=== PATIENT | female | born 1955 ===

== ENCOUNTER 2023-12-05 07:09 | Day surgery (SDC) | payer OTHER ==
[~2023-12-05 07:09] MED LIST: LOSARTAN-HCTZ1 EACH PO
[2023-12-05] MEDS ORDERED: HEMOSTATIC MATRIX 1 KIT KIT TOP ONE ×2 (11:19→12:15)
[2023-12-05] MEDS ORDERED: ERTAPENEM SODIUM 1,000 MG VIAL ONE (11:20)
[2023-12-05] MEDS ORDERED: DIBUCAINE 30 GM TUBE ONE (11:27)
[2023-12-05] MEDS ORDERED: DIBUCAINE 15 GM OINT..GM. TUBE RECTAL ONE (12:15)
[2023-12-05] MEDS ORDERED: ERTAPENEM SODIUM 1,000 MG VIAL IV ONE (12:15)
== END 2023-12-05 17:35 | disposition home or self-care (01) ==
LOC: CIR.AMB 07:09
PROVIDERS: ATTEND Colon & Rectal Surgery
DX: K62.89 Other specified diseases of anus and rectum (principal); D12.9 Benign neoplasm of anus and anal canal; Z88.6 Allergy status to analgesic agent; Z88.1 Allergy status to other antibiotic agents